=== PATIENT | female | born 1995 | race Caucasian/White ===

== ENCOUNTER 2017-04-02 14:47 | Emergency (ER) | payer MEDICAID, OTHER ==
[2017-04-02 14:55] VITALS: BP 131/62; BMI 28.3
--- NOTE | 2017-04-02 15:56 | DR.GENAD ---
HPI - PCP Primary Care Physician: Zoraida - HPI Comment HPI Comment: FOR 6 WEEKS. NO VAGINAL BLEEDING. URINARY FREQUENCY. MILD DYSURIA. . - Complaint/Symptoms Chief Complaint Doctors Comments: LOWER ABDOMINAL PAIN WITH NAUSEA. Chief Complaint:: "For about 3 days I have been having a lot of pain come and go under my belly. Almost like in my groin area. This is my 4th child and it has never been like this before so soon. I have had some burning when I pee and I have been peeing like crazy." - Nurses notes reviewed Nurses Notes Review: Yes - Source History Provided: Patient - Mode of Arrival Mode of Arrival: Ambulatory - Timing Onset of Chief Complaint: 03/30/17 Came on: Suddenly - Duration Duration: Intermittent Duration: Days - Severity Severity: Moderate PMH - PMH Past Medical History: No Past Surgical History: No Surgical History: No History - Family History History of Family Medical Conditions: Yes Family Medical History: Diabetes Mellitus, Cancer, Heart Failure, Hypertension - Social History Does patient currently use any type of tobacco product: No Have you used tobacco products in the last 12 months: No Type of Tobacco Use: None Does any household member use tobacco: No Alcohol Use: None Do you use any recreational Drugs:: No Lives With: Family Lives Where: Home - infectious screening In the last 2 months have you had wt loss of >10#?: NO Have you had fever, night sweats or hemotysis?: No Have you traveled outside the country in the last 6 months?: No Isolation: Standard ROS - Review of Systems Constitutional: No Symptoms Reported Eyes: No Symptoms Reported ENTM: No Symptoms Reported Respiratoy: No Symptoms Reported Cardiovascular: No Symptoms Reported Gastrointestinal/Abdominal: Abdominal Pain, Nausea Genitourinary: Frequency Neurological: No Symptoms Reported Musculoskeletal: No Symptoms Reported Integumentary: No Symptoms Reported Hematologic/Lymphatic: No Symptoms Reported Endocrine: No Symptoms Reported All Other Systems: Reviewed and Negative PE - Vital Signs Vitals: Temperature 98.1 F Pulse Rate 77 Respiratory Rate 18 Blood Pressure [Right Arm] 133/78 Blood Pressure [Left Arm] 125/78 Blood Pressure 131/62 O2 Sat by Pulse Oximetry 98 - General Limitations: No Limitations General Appearance: Alert - Head Head Exam: Normal Inspection - Eyes Eye exam: Normal Appearance - ENT ENT Exam: Normal External Ear Exam External Ear Exam: Normal External Inspection TM/Canal Exam: Bilateral Normal Nose Exam: Normal Nose Exam Mouth Exam: Normal Inspection Throat Exam: Normal Inspection - Neck Neck Exam: Trachea Midline - Chest Chest Inspection: Symmetric Chest Wall Rise - Respiratory Respiratory Exam: Normal Lung Sounds Bilat Respiratory Exam: Bilateral Clear to Auscultation - Cardiovascular Cardiovascular Exam: Regular Rate, Normal Rhythm, Normal Heart Sounds - Abdominal Exam Abdominal Exam: Normal Bowel Sounds, Soft, Tenderness Abdominal Tenderness: RLQ, LLQ - Extremities Extremities Exam: Normal Inspection - Back Back Exam: Normal Inspection - Neurologic Neurological Exam: Alert, Oriented X3 - Psychiatric Psychiatric Exam: Normal Affect, Normal Mood - Skin Skin Exam: Normal Color [facility] - Additional Information Additional Information Obtained From: Family - Differential Diagnosis Differential Diagnosis: LOWER ABDOMINAL PAIN, UTI, THREATENED MISCARRIAGE. Course - Treatment Treatment: SEE ORDERS. - Education/Counseling Education/Counseling: Patient, Family, Education Educated On: Diagnosis, Needs for Follow Up ROR - Labs Reviewed Laboratory Results Reviewed?: Yes Result Diagrams: 04/02/17 16:09 04/02/17 16:09 Laboratory: WBC 9.0 X10^3/uL (3.6-10.0) 04/02/17 16:09 RBC 4.27 X10^6/uL (3.5-5.4) 04/02/17 16:09 Hgb 13.1 g/dL (12.0-16.0) 04/02/17 16:09 Hct 38.0 % (36.0-47.0) 04/02/17 16:09 MCV 89.0 fL (80.0-100.0) 04/02/17 16:09 MCH 30.6 pg (27.0-34.0) 04/02/17 16:09 MCHC 34.5 g/dL (33.0-35.0) 04/02/17 16:09 RDW 13.3 % (11.6-16.5) 04/02/17 16:09 Plt Count 213 X10^3/uL (150.0-450.0) 04/02/17 16:09 MPV 9.5 fL (7.4-11.0) 04/02/17 16:09 Neut % 68.1 % (42.0-75.0) 04/02/17 16:09 Lymph % 26.6 % (21.0-51.0) 04/02/17 16:09 Gladwin % 3.7 % (0.0-13.0) 04/02/17 16:09 Eos % 1.1 % (0.9-2.9) 04/02/17 16:09 Baso % 0.5 % (0.2-1.0) 04/02/17 16:09 Neut # 6.1 x10^3/uL (2.2-4.8) H 04/02/17 16:09 Lymph # 2.4 X10^3/uL (1.3-2.9) 04/02/17 16:09 Gladwin # 0.3 x10^3/uL (0.3-0.8) 04/02/17 16:09 Eos # 0.1 x10^3/uL (0.0-0.2) 04/02/17 16:09 Baso # 0.0 X10^3/uL (0.0-0.1) 04/02/17 16:09 Absolute Nucleated RBC 0.0 /100WBC 04/02/17 16:09 Sodium 138 mmol/L (136-145) 04/02/17 16:09 Corrected Sodium TNP 04/02/17 16:09 Potassium 4.1 mmol/L (3.5-5.1) 04/02/17 16:09 Chloride 102 mmol/L (98-107) 04/02/17 16:09 Carbon Dioxide 27.1 mmol/L (21-32) 04/02/17 16:09 BUN 8 mg/dL (7-18) 04/02/17 16:09 Creatinine 0.66 mg/dL (0.55-1.02) 04/02/17 16:09 Est GFR (MDRD) Af Amer > 60 (>60) 04/02/17 16:09 Est GFR (MDRD) Non-Af > 60 (>60) 04/02/17 16:09 Glucose 86 mg/dL (65-99) 04/02/17 16:09 Calcium 9.2 mg/dL (8.5-10.1) 04/02/17 16:09 Corrected Calcium TNP 04/02/17 16:09 Total Bilirubin 0.30 mg/dL (0.2-1.0) 04/02/17 16:09 AST 14 Units/L (15-37) L 04/02/17 16:09 ALT 20 Units/L (12-78) 04/02/17 16:09 Alkaline Phosphatase 45 Units/L (46-116) L 04/02/17 16:09 Total Protein 8.8 g/dL (6.4-8.2) H 04/02/17 16:09 Albumin 4.1 g/dL (3.4-5.0) 04/02/17 16:09 Globulin 4.7 g/dL (2.5-4.5) H 04/02/17 16:09 Albumin/Globulin Ratio 0.9 Ratio (1.1-2.1) L 04/02/17 16:09 HCG, Quant 07179 mIU/mL (0-6) H 04/02/17 16:09 Specimen Type Clean catch urine 04/02/17 16:24 Urine Color Yellow (YELLOW) 04/02/17 16:24 Urine Appearance Clear (CLEAR) 04/02/17 16:24 Urine pH 6.0 (5.0 - 8.0) 04/02/17 16:24 Ur Specific Dorothy 1.010 (1.000-1.030) 04/02/17 16:24 Urine Protein 2+ (NEGATIVE) 04/02/17 16:24 Urine Glucose (UA) Negative (NEGATIVE) 04/02/17 16:24 Urine Ketones Negative (NEGATIVE) 04/02/17 16:24 Urine Occult Blood 3+ (NEGATIVE) 04/02/17 16:24 Urine Nitrite Negative (NEGATIVE) 04/02/17 16:24 Urine Bilirubin Negative (NEGATIVE) 04/02/17 16:24 Urine Urobilinogen Normal (NORMAL) 04/02/17 16:24 Ur Leukocyte Esterase 2+ (NEGATIVE) 04/02/17 16:24 Urine RBC 4 - 5 /HPF (NEGATIVE) 04/02/17 16:24 Urine WBC 1 - 5 /HPF (NEGATIVE) 04/02/17 16:24 Ur Squamous Epith Cells Few /HPF (NEGATIVE) 04/02/17 16:24 Urine Bacteria Negative /HPF (NEGATIVE) 04/02/17 16:24 Ur Culture Indicated? No/not indicated 04/02/17 16:24 - XRAY XRAY Interpreted by: Radiologist XRAY Findings: REPORT DISCUSS WITH PATIENT AND HER FAMILY. - Diagnosis Discharge Problem: Abdominal pain affecting Normal IUP (intrauterine ) on ultrasound Qualifiers: Trimester: first trimester Qualified Code(s): Z34.91 - Encounter for supervision of normal , unspecified, first trimester - Discharge Plan Disposition: 01 HOME, SELF-CARE Condition: Stable - Follow ups/Referrals Follow ups/Referrals: JEREL PAULA [Primary Care Provider] - 3 days - Instructions Instructions: Abdominal Pain During , [id number], Pelvic Rest Additional Instructions: RETURN TO ED IF WORSE.
[2017-04-02 16:22] LABS: BASOPHILS % (AUTO) 0.5 % (0.2-1.0); EOSINOPHILS # (AUTO) 0.1 x10^3/uL (0.0-0.2); EOSINOPHILS % (AUTO) 1.1 % (0.9-2.9); HEMOGLOBIN 13.1 g/dL (12.0-16.0); LYMPHOCYTES # (AUTO) 2.4 X10^3/uL (1.3-2.9); LYMPHOCYTES % (AUTO) 26.6 % (21.0-51.0); MEAN CORPUSCULAR HEMOGLOBIN 30.6 pg (27.0-34.0); MEAN CORPUSCULAR HGB CONC 34.5 g/dL (33.0-35.0); MEAN PLATELET VOLUME 9.5 fL (7.4-11.0); MONOCYTES # (AUTO) 0.3 x10^3/uL (0.3-0.8); MONOCYTES % (AUTO) 3.7 % (0.0-13.0); NEUTROPHILS # (AUTO) 6.1 x10^3/uL (2.2-4.8); NEUTROPHILS % (AUTO) 68.1 % (42.0-75.0); PLATELET COUNT 213 X10^3/uL (150.0-450.0); RED BLOOD COUNT 4.27 X10^6/uL (3.5-5.4); RED CELL DISTRIBUTION WIDTH 13.3 % (11.6-16.5)
[2017-04-02 16:32] LABS: ALANINE AMINOTRANSFERASE 20 Units/L (12-78); ALBUMIN 4.1 g/dL (3.4-5.0); ALKALINE PHOSPHATASE 45 Units/L (46-116); ASPARTATE AMINO TRANSFERASE 14 Units/L (15-37); BLOOD UREA NITROGEN 8 mg/dL (7-18); CALCIUM 9.2 mg/dL (8.5-10.1); CARBON DIOXIDE 27.1 mmol/L (21-32); CHLORIDE 102 mmol/L (98-107); CREATININE 0.66 mg/dL (0.55-1.02); SODIUM 138 mmol/L (136-145); TOTAL PROTEIN 8.8 g/dL (6.4-8.2); eGFR BLACK RACES > 60 (>60); eGFR NON BLACK RACES > 60 (>60)
[2017-04-02 16:44] LABS: BILIRUBIN,URINE NEGATIVE (NEGATIVE); BLOOD/HEMOGLOBIN,URINE 3+ (NEGATIVE); GLUCOSE, URINE NEGATIVE (NEGATIVE); KETONES,URINE NEGATIVE (NEGATIVE); LEUKOCYTE ESTERASE ,URINE 2+ (NEGATIVE); NITRITES,URINE NEGATIVE (NEGATIVE); PROTEIN,URINE 2+ (NEGATIVE); UROBILINOGEN,URINE NORMAL (NORMAL)
[2017-04-02 16:48] LABS: COLOR,URINE YELLOW (YELLOW)
[2017-04-02 16:49] LABS: APPEARANCE,URINE CLEAR (CLEAR)
[2017-04-02 16:52] LABS: BACTERIA,URINE NEGATIVE /HPF (NEGATIVE); SQUAMOUS EPITHELIAL CELL,UR FEW /HPF (NEGATIVE)
[2017-04-02 17:02] LABS: HCG,QUANTITATIVE 47284 mIU/mL (0-6)
--- NOTE | 2017-04-02 18:06 | US ---
Pelvic obstetric ultrasound: Indication: Pelvic pain, burning with urination. Comparison: None available. Technique: Multiple transverse and longitudinal real-time transabdominal and endovaginal sonographic images of the pelvis were obtained with Doppler interrogation. Findings: Incidental note is made of a large nabothian cyst of the cervix. There is a single intraute rine gestational. The gestational sac and yolk sac are within normal limits, without evidence of subc horionic hemorrhage. The crown-rump length measures 9.5 mm, corresponding to an estimated gestational age of 7 weeks and 0 days. Cardiac activity is present, with a heart rate of 150 beats per minute. Both adnexa, to include the ovaries, are within normal limits. The right ovary measures 4.2 x 1.9 x 2 .6 cm; the left ovary measures 4.0 x 2.1 x 1.8 cm. No free fluid is identified. Impression: Single intrauterine gestation, dating to 7 weeks and 0 days by ultrasound, demonstrating reassuring cardiac activity. Reported By:
== END 2017-04-02 18:23 | disposition home or self-care (01) ==
LOC: ER 15:03
DX: R10.31 Right lower quadrant pain (principal); Z34.91 Encounter for supervision of normal pregnancy, unspecified, first trimester; Z3A.01 Less than 8 weeks gestation of pregnancy
CPT/HCPCS: 36415; 76801; 80053; 81001; 84702; 85025; 99284

== ENCOUNTER 2017-06-07 16:22 | Emergency (ER) | payer MEDICAID, OTHER ==
[2017-06-07 16:27] VITALS: BP 130/70; BMI 27.4
[2017-06-07 16:59] LABS: BILIRUBIN,URINE NEGATIVE (NEGATIVE); BLOOD/HEMOGLOBIN,URINE 1+ (NEGATIVE); GLUCOSE, URINE NEGATIVE (NEGATIVE); KETONES,URINE NEGATIVE (NEGATIVE); LEUKOCYTE ESTERASE ,URINE 3+ (NEGATIVE); NITRITES,URINE NEGATIVE (NEGATIVE); PH,URINE 6.5 (5.0 - 8.0); PROTEIN,URINE NEGATIVE (NEGATIVE); UROBILINOGEN,URINE NORMAL (NORMAL)
[2017-06-07 17:02] LABS: APPEARANCE,URINE SLIGHTLY HAZY (CLEAR); COLOR,URINE YELLOW (YELLOW)
[2017-06-07 17:06] LABS: RBC,URINE 0-2 /HPF (NONE SEEN)
[2017-06-07 17:07] LABS: BACTERIA,URINE 1+ /HPF (NEGATIVE); SQUAMOUS EPITHELIAL CELL,UR MODERATE /HPF (NEGATIVE)
--- NOTE | 2017-06-07 17:29 | DR.PREG ---
HPI - Time seen Time seen: 16:45 - PCP Primary Care Physician: NISA - Chief Complaint Chief Complaint Doctors Comments: Patient presents with complaint of not feeling the baby moving. She is 17 weeks . She denies vagial bleeding. Chief Complaint:: PT C/O NOT BEING ABLE TO FEEL THE BABY MOVE IN THE PAST COUPLE OF DAYS. PT STATES SHE 17 WEEKS AND SOME ODD DAYS. PT'S LMP WAS 02/11/17 JAY JAY 11/13/17. PT DENIES ANY ABD CRAMPING, OR VAGINAL BLEEDING. - Source History Provided: Patient - Mode of Arrival Mode of Arrival: Ambulatory - Timing Onset of Chief Complaint: 06/04/17 PMH - PMH Past Medical History: No Past Surgical History: No Surgical History: No History - Family History History of Family Medical Conditions: Yes Family Medical History: Diabetes Mellitus, Cancer, Heart Failure, Hypertension - Social History Does any household member use tobacco: No Alcohol Use: None Do you use any recreational Drugs:: No Lives With: Family Lives Where: Home - infectious screening In the last 2 months have you had wt loss of >10#?: NO Have you had fever, night sweats or hemotysis?: No Have you traveled outside the country in the last 6 months?: No Isolation: Standard ROS - Review of Systems Eyes: No Symptoms Reported ENTM: No Symptoms Reported Respiratoy: No Symptoms Reported Cardiovascular: No Symptoms Reported Gastrointestinal/Abdominal: No Symptoms Reported Genitourinary: No Symptoms Reported Neurological: No Symptoms Reported Musculoskeletal: No Symptoms Reported Integumentary: No Symptoms Reported Hematologic/Lymphatic: No Symptoms Reported Endocrine: No Symptoms Reported Psychiatric: No Symptoms Reported All Other Systems: Reviewed and Negative PE - Vital Signs Vitals: Temperature 98.1 F Pulse Rate 82 Respiratory Rate 20 Blood Pressure [Right Arm] 133/78 Blood Pressure [Left Arm] 125/78 Blood Pressure 130/70 O2 Sat by Pulse Oximetry 99 - General Limitations: No Limitations General Appearance: Alert, In No Apparent Distress - Head Head Exam: Normal Inspection, Atraumatic - Eyes Eye exam: Normal Appearance, PERRL, EOMI - ENT ENT Exam: Normal Exam - Neck Neck Exam: Normal Inspection, Full ROM - Chest Chest Inspection: Normal Inspection, Symmetric Chest Wall Rise - Respiratory Respiratory Exam: Normal Lung Sounds Bilat Respiratory Exam: Bilateral Clear to Auscultation - Cardiovascular Cardiovascular Exam: Regular Rate, Normal Rhythm - Abdominal Exam Abdominal Exam: Normal Inspection Abdominal Tenderness: negative: RUQ, RLQ, LUQ, LLQ, Epigastrium, Suprapubic, Diffuse, Mild, Moderate, Severe, Other - Extremeties Extremities Exam: Normal Inspection, Full ROM - Neurologic Neurological Exam: Alert, Oriented X3, CN II-XII Intact - Psychiatric Psychiatric Exam: Normal Affect, Normal Mood - Skin Skin Exam: Warm ROR - Labs Reviewed Laboratory Results Reviewed?: Yes (Quant HCG [id number]) Laboratory: HCG, Quant 43204 mIU/mL (0-6) H 06/07/17 17:35 Specimen Type Clean catch urine 06/07/17 16:50 Urine Color Yellow (YELLOW) 06/07/17 16:50 Urine Appearance Slightly hazy (CLEAR) 06/07/17 16:50 Urine pH 6.5 (5.0 - 8.0) 06/07/17 16:50 Ur Specific Kelley 1.020 (1.000-1.030) 06/07/17 16:50 Urine Protein Negative (NEGATIVE) 06/07/17 16:50 Urine Glucose (UA) Negative (NEGATIVE) 06/07/17 16:50 Urine Ketones Negative (NEGATIVE) 06/07/17 16:50 Urine Occult Blood 1+ (NEGATIVE) 06/07/17 16:50 Urine Nitrite Negative (NEGATIVE) 06/07/17 16:50 Urine Bilirubin Negative (NEGATIVE) 06/07/17 16:50 Urine Urobilinogen Normal (NORMAL) 06/07/17 16:50 Ur Leukocyte Esterase 3+ (NEGATIVE) 06/07/17 16:50 Urine RBC 0-2 /HPF (NONE SEEN) 06/07/17 16:50 Urine WBC 10-20 /HPF (NONE SEEN) 06/07/17 16:50 Ur Squamous Epith Cells Moderate /HPF (NEGATIVE) 06/07/17 16:50 Urine Bacteria 1+ /HPF (NEGATIVE) 06/07/17 16:50 Ur Culture Indicated? Yes/culture set up 06/07/17 16:50 - XRAY XRAY Interpreted by: Radiologist (OB US:A viable single intrauterine with an average ultrasound age of 17 weeks 3 days correspond to an estimated date of delivery of 11/12/17. No anatomical abnormalities can be identified. Follow up with OB) - Diagnosis Discharge Problem: Intrauterine - Discharge Plan Condition: Stable - Follow ups/Referrals Follow ups/Referrals: JEREL PAULA [Primary Care Provider] - 3 days - Instructions
--- NOTE | 2017-06-07 19:27 | US ---
HISTORY: 22-year-old female states she has not on her baby movement a couple of days. Study: OB ultrasound greater than 14 weeks Comparison: Ob ultrasound 04/02/2017 Technique: Multiple grayscale and color flow Doppler images of the pelvis were obtained with focused evaluation of the fetus. Findings: A viable single intrauterine is identified with heart tones of 148 beats per minute. A breached presentation is observed with a posterior and fundal placenta. Normal amniotic fluid vol ume is observed. Limited evaluation of the anatomy is unremarkable. Value Estimated Gestational Age BPD 3.9 cm 17 weeks 5 days HC 14 cm 17 weeks 2 days AC 11 cm 17 weeks 2 days FL 2.4 cm 17 weeks 2 days Estimated weight 188 g, 36th percentile. IMPRESSION: A viable single intrauterine with an average ultrasound age of 17 weeks 3 days correspond t o an estimated date of delivery of 11/12/2017. No anatomical abnormalities can be identified. Follow-up with OB. Reported By:
== END 2017-06-07 19:43 | disposition home or self-care (01) ==
LOC: ER 16:33
DX: O36.8120 Decreased fetal movements, second trimester, not applicable or unspecified (principal); Z3A.17 17 weeks gestation of pregnancy
CPT/HCPCS: 36415; 76815; 81001; 84702; 87086; 99282; 99283

== ENCOUNTER 2017-08-02 14:22 | Emergency (ER) | payer OTHER ==
[2017-08-02 14:31] VITALS: BMI 29.7
[2017-08-02 15:19] LABS: BILIRUBIN,URINE NEGATIVE (NEGATIVE); BLOOD/HEMOGLOBIN,URINE 1+ (NEGATIVE); GLUCOSE, URINE NEGATIVE (NEGATIVE); KETONES,URINE NEGATIVE (NEGATIVE); LEUKOCYTE ESTERASE ,URINE NEGATIVE (NEGATIVE); NITRITES,URINE NEGATIVE (NEGATIVE); PROTEIN,URINE NEGATIVE (NEGATIVE); UROBILINOGEN,URINE NORMAL (NORMAL)
[2017-08-02 15:32] LABS: APPEARANCE,URINE CLEAR (CLEAR); BACTERIA,URINE TRACE /HPF (NEGATIVE); COLOR,URINE YELLOW (YELLOW); RBC,URINE 0-2 /HPF (NONE SEEN); SQUAMOUS EPITHELIAL CELL,UR MODERATE /HPF (NEGATIVE)
[2017-08-02 16:03] VITALS: BP 129/66
== END 2017-08-02 15:45 | disposition home or self-care (01) ==
LOC: ER 14:22 → LD 15:30 → UNDOADMIN 15:30 → UNDODISIN 15:52
DX: O46.92 Antepartum hemorrhage, unspecified, second trimester (principal); Z3A.25 25 weeks gestation of pregnancy
CPT/HCPCS: 81001; 99284

== ENCOUNTER 2017-11-07 06:19 | Inpatient (IN) ==
[2017-11-07] MEDS ORDERED: D5LR 1L W PITOCIN 10 UNITS/L 10 UNITS/1,000 ML BAG IV ONE (06:39)
[2017-11-07] MEDS ORDERED: D5 1/2 NS 1000 ML 1,000 ML IV ONE (06:40)
[2017-11-07] MEDS ORDERED: NUBAIN INJ 200 MG VIAL MULTIDOSE IVP PRN (06:48)
[2017-11-07] MEDS ORDERED: PHENERGAN INJ 25 MG IV PRN ×2 (06:48→12:38)
[2017-11-07] MEDS ORDERED: D5LR 1L W PITOCIN 10 UNITS/L 10 UNITS/1,000 ML BAG IV PRN (06:48)
[2017-11-07] MEDS ORDERED: REGLAN INJ 10 MG VIAL IVP PRN (06:48)
[2017-11-07] MEDS ORDERED: D5 1/2 NS 1000 ML 1,000 ML IV SCH (06:48)
[2017-11-07] MEDS ORDERED: MORPHINE SULFATE INJ 2 MG INJ IVP PRN (06:48)
[2017-11-07] MEDS ORDERED: PITOCIN IVP ONE (06:48)
--- NOTE | 2017-11-07 07:17 | DR.OB ---
OB Quick Note - Assessment/Plan Assessment/Plan: L&D 11/07/17 at 6:55am S-No complaint. O-Afebrile,VSS SID=158 with good LTV, +accel, no decel. CTX=none CVX=3cm/50%/-1/VTX AROM with clear fluid. IUPC and FSE placed. A-IUP at 39 1/7 weeks for induction P-Begin pitocin induction Anticipate
[2017-11-07] MEDS ORDERED: LR 1000 ML IV 1,000 ML IV ONE (07:35)
[2017-11-07] MEDS ORDERED: NAROPIN EPIDURAL 0.2% + FENTANYL 90MCG 60 ML EPI ONE (08:27)
[2017-11-07] MEDS ORDERED: FENTANYL INJ 100 mcg ONE (08:27)
[2017-11-07] MEDS: LR 1000 ML IV 1,000 ML IV ONE ×2 (08:30→14:02)
[2017-11-07] MEDS ORDERED: XYLOCAINE 1 % (PLAIN) ONE (08:32)
[2017-11-07] MEDS ORDERED: ADRENALINE CHL INJ ONE (08:45)
[2017-11-07] MEDS ORDERED: D5 1/2 NS 1L W PITOCIN 20 UNITS/L 20 UNITS/1,000 ML BAG IV ONE (10:58)
[2017-11-07] MEDS ORDERED: PITOCIN ONE (10:58)
[2017-11-07] MEDS ORDERED: NAROPIN EPIDURAL 0.2% 97 ML with FENTANYL INJ 250 mcg 150 MCG EPI ONE ×2 (12:00)
--- NOTE | 2017-11-07 12:38 | DR.OB ---
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 Head delivered over intact perineum. No nuchal cord. Nose and mouth bulb suctioned. Body delivered over intact perineum. Cord clamped x 2 and cut. Infant handed to attendant. Cord sent for gases. Placenta delivered spontaneously / intact / 3 vessel cord. No CVX / vaginal / perineal tears. Viable female infant, VTX/OA, wt=6'14" and 9/9, stable to NBN. Mother stable to NBN. EMQ=432pf.
[2017-11-07] MEDS ORDERED: DERMOPLAST SPRAY TOP PRN (13:08)
[2017-11-07] MEDS ORDERED: ADACEL or BOOSTRIX TDaP VACCINE IM ONE ×2 (13:08→15:59)
[2017-11-07] MEDS ORDERED: AMBIEN PO PRN (13:08)
[2017-11-07] MEDS ORDERED: MILK OF MAGNESIA PO PRN (13:08)
[2017-11-07] MEDS: MOTRIN TAB 800 MG PO PRN (15:38)
[2017-11-07] MEDS: D5 1/2 NS 1000 ML 1,000 ML with PITOCIN 20 UNITS IV SCH ×2 (15:38)
[2017-11-07] MEDS: ZANTAC PO SCH (21:32)
[2017-11-08 05:11] LABS: HEMOGLOBIN 9.6 g/dL (12.0-16.0)
[2017-11-08] MEDS: ZANTAC PO SCH (07:59)
[2017-11-08] MEDS: D5 1/2 NS 1000 ML 1,000 ML with PITOCIN 20 UNITS IV SCH ×4 (08:00→13:36)
[2017-11-08] MEDS ORDERED: PRENATAL PLUS PO SCH (09:00)
[2017-11-08] MEDS: MOTRIN TAB 800 MG PO PRN (10:25)
[2017-11-08 12:26] VITALS: BP 116/71
== END 2017-11-08 14:15 | disposition home or self-care (01) | DRG 775 ==
LOC: LD 06:19 → MED/SURG 13:35
PROVIDERS: ADMIT Specialist; ATTEND Specialist
DX: N87.0 Mild cervical dysplasia; Z37.0 Single live birth; O99.89 Other specified diseases and conditions complicating pregnancy, childbirth and the puerperium; Z01.818 Encounter for other preprocedural examination; Z3A.39 39 weeks gestation of pregnancy; Z23 Encounter for immunization
CPT/HCPCS: 36415; 59409; 80048; 80307; 81001; 85014; 85018; 85025; 86592; 86850; 86900; 86901; 90715; A4216; A4222; S0197; G0434; J0171; J2590; J2795; J3010; J7120; S5010

== ENCOUNTER 2019-09-25 13:40 | Inpatient (IN) ==
[2019-09-25 13:49] VITALS: BMI 29.2
[2019-09-25] MEDS ORDERED: PITOCIN ONE (14:17)
[2019-09-25] MEDS ORDERED: D5 1/2 NS 1000 ML 1,000 ML IV ONE (14:18)
[2019-09-25] MEDS ORDERED: BETADINE SOLN ONE (14:18)
[2019-09-25] MEDS ORDERED: D5LR 1L W PITOCIN 10 UNITS/L 10 UNITS/1,000 ML BAG IV ONE (14:19)
[2019-09-25] MEDS ORDERED: D5 1/2 NS 1L W PITOCIN 20 UNITS/L 20 UNITS/1,000 ML BAG IV ONE (14:20)
[2019-09-25] MEDS ORDERED: REGLAN INJ 10 MG VIAL IVP PRN (14:42)
[2019-09-25] MEDS ORDERED: D5LR 1L W PITOCIN 10 UNITS/L 10 UNITS/1,000 ML BAG IV PRN (14:42)
[2019-09-25] MEDS ORDERED: PITOCIN IVP ONE (14:42)
[2019-09-25] MEDS ORDERED: PHENERGAN INJ 25 MG IM PRN ×2 (14:42→18:37)
[2019-09-25] MEDS ORDERED: D5 1/2 NS 1000 ML 1,000 ML IV SCH (15:00)
[2019-09-25 15:10] LABS: BASOPHILS % (AUTO) 0.5 % (0.2-1.0); EOSINOPHILS % (AUTO) 0.5 % (0.9-2.9); HEMATOCRIT 32.3 % (36.0-47.0); HEMOGLOBIN 11.1 g/dL (12.0-16.0); LYMPHOCYTES # (AUTO) 1.8 X10^3/uL (1.3-2.9); LYMPHOCYTES % (AUTO) 25.6 % (21.0-51.0); MEAN CORPUSCULAR HEMOGLOBIN 30.4 pg (27.0-34.0); MEAN CORPUSCULAR HGB CONC 34.2 g/dL (33.0-35.0); MEAN CORPUSCULAR VOLUME 88.9 fL (80.0-100.0); MEAN PLATELET VOLUME 11.5 fL (7.4-11.0); MONOCYTES # (AUTO) 0.3 x10^3/uL (0.3-0.8); MONOCYTES % (AUTO) 4.4 % (0.0-13.0); NEUTROPHILS # (AUTO) 4.8 x10^3/uL (2.2-4.8); PLATELET COUNT 97 X10^3/uL (150.0-450.0); RED BLOOD COUNT 3.64 X10^6/uL (3.5-5.4); RED CELL DISTRIBUTION WIDTH 13.4 % (11.6-16.5); WHITE BLOOD COUNT 6.9 X10^3/uL (3.6-10.0)
[2019-09-25] MEDS ORDERED: FENTANYL INJ 100 mcg ONE (15:12)
[2019-09-25 15:13] LABS: BILIRUBIN,URINE NEGATIVE (NEGATIVE); BLOOD/HEMOGLOBIN,URINE NEGATIVE (NEGATIVE); GLUCOSE, URINE NEGATIVE (NEGATIVE); KETONES,URINE NEGATIVE (NEGATIVE); LEUKOCYTE ESTERASE ,URINE 2+ (NEGATIVE); NITRITES,URINE NEGATIVE (NEGATIVE); PROTEIN,URINE NEGATIVE (NEGATIVE); UROBILINOGEN,URINE NORMAL (NORMAL)
[2019-09-25] MEDS ORDERED: LR 1000 ML IV 1,000 ML IV ONE (15:13)
[2019-09-25 15:14] LABS: APPEARANCE,URINE HAZY (CLEAR); COLOR,URINE YELLOW (YELLOW)
[2019-09-25 15:21] LABS: BLOOD UREA NITROGEN 6 mg/dL (7-18); CALCIUM 8.7 mg/dL (8.5-10.1); CARBON DIOXIDE 23.3 mmol/L (21-32); CHLORIDE 102 mmol/L (98-107); CREATININE 0.65 mg/dL (0.55-1.02); SODIUM 135 mmol/L (136-145); eGFR NON BLACK RACES > 60 (>60)
[2019-09-25] MEDS ORDERED: FENTANYL 2 mcg/mL-ROPIV 0.1%-NS EPIDURAL 200 ML EPI ONE (15:21)
[2019-09-25 15:23] LABS: BACTERIA,URINE NEGATIVE /HPF (NEGATIVE); RBC,URINE NONE SEEN /HPF (0-3); SQUAMOUS EPITHELIAL CELL,UR MANY /HPF (NEGATIVE)
--- NOTE | 2019-09-25 15:23 | DR.OB ---
OB Quick Note - Assessment/Plan Assessment/Plan: L&D 09/25/19 at 2:50pm S-No complaint. O-Afebrile,VSS CTX=q 1 1/2 to 5 min., mild to moderate by palpation CVX=3/50%/-1/VTX AROM with clear fluid. IUPC and FSE placed. PSY=633 with good LTV, +accel, no decel. A-IUP at 38 2/7 weeks in active labor P-Begin pitocin induction F/U labs Anticipate
[2019-09-25] MEDS: D5 1/2 NS 1000 ML 1,000 ML with PITOCIN 20 UNITS IV SCH ×2 (18:18)
[2019-09-25] MEDS ORDERED: MILK OF MAGNESIA PO PRN (18:37)
[2019-09-25] MEDS ORDERED: AMBIEN PO PRN (18:37)
[2019-09-25] MEDS ORDERED: DERMOPLAST PAIN RELIEF SPRAY TOP PRN (18:37)
[2019-09-25] MEDS ORDERED: ADACEL or BOOSTRIX TDaP VACCINE IM ONE (18:37)
--- NOTE | 2019-09-25 18:37 | DR.OB ---
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 Head delivered over intact perineum. No nuchal cord. Nose and mouth bulb suctioned. Body delivered over intact perineum. Cord clamped x 2 and cut. handed to attendant. Cord sent for gases. Placenta delivered spontaneously / intact / 3 vessel cord. No CVX / vaginal / perineal tears. Viable male infant, VTX/OA, wt=8'11" and 8/9, stable to NBN. Mother stable to RR. QBS=[id number].
[2019-09-26] MEDS: MOTRIN TAB 800 MG PO PRN ×2 (00:59→09:18)
[2019-09-26] MEDS: D5 1/2 NS 1000 ML 1,000 ML with PITOCIN 20 UNITS IV SCH ×2 (04:56)
[2019-09-26 05:49] LABS: HEMATOCRIT 28.1 % (36.0-47.0); HEMOGLOBIN 9.7 g/dL (12.0-16.0)
[2019-09-26] MEDS: PRENATAL PLUS PO SCH (09:15)
[2019-09-26] MEDS: FERROUS GLUCONATE PO SCH (17:07)
[2019-09-26] MEDS ORDERED: LANOLIN TOP PRN (23:01)
[2019-09-27 08:34] VITALS: BP 127/84
[2019-09-27] MEDS: PRENATAL PLUS PO SCH (09:32)
[2019-09-27] MEDS: FERROUS GLUCONATE PO SCH (09:32)
[2019-09-27] MEDS: MOTRIN TAB 800 MG PO PRN (10:12)
== END 2019-09-27 14:50 | disposition home or self-care (01) | DRG 807 ==
LOC: ER 13:40 → LD 14:12 → MED/SURG 19:14
PROVIDERS: ADMIT Specialist; ATTEND Obstetrics & Gynecology Obstetrics
DX: Z3A.38 38 weeks gestation of pregnancy; Z37.0 Single live birth; O80 Encounter for full-term uncomplicated delivery
CPT/HCPCS: 36415; 59409; 80048; 81001; 85014; 85018; 85025; 86592; 86850; 86900; 86901; 96365; 99284; A4216; A4222; J2590; J3010; J7120; S0197; S5010